=== PATIENT | male | born 1970 | race Caucasian/White ===

== ENCOUNTER 2020-12-10 10:22 | Emergency (ER) | payer OTHER ==
[~2020-12-10] VITALS: Ht 172.7 cm; Wt 86.4 kg
[2020-12-10] MEDS ORDERED: MORPHINE SULFATE 4 MG/ML SYRINGE IVP ONE (10:45)
[2020-12-10] MEDS ORDERED: SODIUM CHLORIDE 0.9% 1,000 ML IV ONE (10:45)
[2020-12-10] MEDS ORDERED: FENO160T16 PO (10:49)
[2020-12-10] MEDS ORDERED: TRAZ150T79 PO (10:49)
[2020-12-10] MEDS ORDERED: HYDR-4065 PO (10:49)
[2020-12-10] MEDS ORDERED: AZIT-84 PO (10:49)
[2020-12-10] MEDS ORDERED: PIOG15TA66 PO (10:49)
[2020-12-10] MEDS ORDERED: HYDR25TA82 PO (10:49)
[2020-12-10] MEDS ORDERED: OXYC5TAB3 PO (10:49)
[2020-12-10] MEDS ORDERED: INSNOV SQ (10:49)
[2020-12-10] MEDS ORDERED: LISI40TA9 PO (10:49)
[2020-12-10] MEDS ORDERED: INSU300I3 SQ (10:49)
[2020-12-10] MEDS ORDERED: PIPERACILLIN/TAZO 3.375 GM/D5W 50 ML IV ONE (11:00)
[2020-12-10 11:06] LABS: BASOPHILS % (AUTO) 0.7 % (0.0-2.0); EOSINOPHILS % (AUTO) 1.1 % (1.0-6.0); HEMATOCRIT 40.2 % (41-53); HEMOGLOBIN 13.8 g/dL (13.5-17.5); LYMPHOCYTES # (AUTO) 1.4 K/uL (1.0-4.8); LYMPHOCYTES % (AUTO) 17.5 % (22.0-44.0); MEAN CORPUSCULAR HEMOGLOBIN 30.3 pg (26.0-34.0); MEAN CORPUSCULAR HGB CONC 34.3 G/dL (31.0-37.0); MEAN CORPUSCULAR VOLUME 88 fL (80-100); MONOCYTES # (AUTO) 0.6 K/uL (0.1-1.0); MONOCYTES % (AUTO) 7.7 % (2.0-9.0); PLATELET COUNT (AUTO) 247 K/uL (150-450); RED BLOOD CELL COUNT(AUTO) 4.55 MIL/uL (4.50-5.90); RED CELL DISTRIBUTION WIDTH 15.5 % (11.5-14.5)
[2020-12-10 11:14] LABS: CALCIUM, TOTAL 9.7 mg/dL (8.8-10.5); CREATININE 1.34 mg/dL (0.60-1.30); POTASSIUM 4.9 mmol/L (3.5-5.1)
[2020-12-10] MEDS ORDERED: IOHEXOL 350 MG/ML 75 ML VIAL ONE (11:26)
[2020-12-10] MEDS ORDERED: SODIUM CHLORIDE 0.9% 100 ML ONE (11:26)
[2020-12-10] MEDS ORDERED: ONDANSETRON HCL 4 MG/2 ML VIAL IVP ONE (11:45)
[2020-12-10 12:56] VITALS: BP 150/70
[2020-12-10] MEDS ORDERED: BUPIVACAINE HCL/PF 0.25% 10 ML VIAL SQ ONE (13:15)
== END 2020-12-10 13:33 | disposition home or self-care (01) ==
LOC: EMS 10:27
DX: K02.9 Dental caries, unspecified (principal); L03.211 Cellulitis of face; J44.9 Chronic obstructive pulmonary disease, unspecified; E11.9 Type 2 diabetes mellitus without complications; I10 Essential (primary) hypertension; F12.90 Cannabis use, unspecified, uncomplicated; Z90.89 Acquired absence of other organs; Z88.6 Allergy status to analgesic agent
CPT/HCPCS: 36415; 70487; 80048; 82962; 85025; 96365; 96372; 96375; 99285; A9575; J2270; J2405; J2543; J3490; J7030; J7050